=== PATIENT | male | born 1990 | race Caucasian/White ===

== ENCOUNTER 2018-07-08 22:39 | Emergency (ER) | payer OTHER, BC ==
[2018-07-08] MEDS ORDERED: SKIN ADHESIVE (DERMABOND) 1 EACH TP ONE (23:16)
[2018-07-08 23:31] VITALS: BP 137/79
--- NOTE | 2018-07-08 23:31 | EDPHY ---
H & P Stated Complaint: HIT FOREHEAD ON METAL HANDLE ON DOOR AT WORK Time Seen by Provider: 07/08/18 22:57 HPI/ROS: HPI: The patient presents with head injury which occurred about 20 min prior to arrival he believes. He was walking and opened a heavy iron door with a steel handle and hit his head against it. He sustained a forehead laceration. He has not had any other injuries. He did not lose consciousness, has full recall of the event. He does not have a headache, behavioral change, vision change, weakness of his arms or legs, vomiting. His last tetanus vaccine was within 10 years. REVIEW OF SYSTEMS 10 systems were reviewed and negative with the exception of the elements mentioned in the history of present illness. PMHx: History of mandibular fracture TRAUMA PHYSICAL General Appearance: Alert, no distress Head: 3 cm vertical forehead laceration at the midline which is non gaping, full range of motion of the frontalis Eyes: Pupils equal, round, reactive ENT, Mouth: no oral trauma Neck: Trachea midline Respiratory: Breathing comfortably Neurological: A&Ox3, GCS=15,normal motor function with 5/5 strength in all 4 extremities, normal sensory exam Source: Patient Exam Limitations: No limitations - Personal History Current Tetanus/Diphtheria Vaccine: Yes - Medical/Surgical History Hx Asthma: No Hx Chronic Respiratory Disease: No Hx Diabetes: No Hx Cardiac Disease: No Hx Renal Disease: No Hx Cirrhosis: No Hx Alcoholism: No Hx HIV/AIDS: No Hx Splenectomy or Spleen Trauma: No Other PMH: FACIAL SURG, FX JAW, COLITIS 11/23 - Social History Smoking Status: Current every day smoker Constitutional: Initial Vital Signs Temperature (C) 36.3 C 07/08/18 22:42 Heart Rate 70 07/08/18 22:42 Respiratory Rate 18 07/08/18 22:42 Blood Pressure 135/94 H 07/08/18 22:42 O2 Sat (%) 97 07/08/18 22:42 O2 Delivery Mode Room Air Allergies/Adverse Reactions: No Known Allergies Allergy (Unverified 07/08/18 22:41) Home Medications: Medication Instructions Recorded NK [No Known Home Meds] 07/08/18 Medical Decision Making Procedures: LACERATION REPAIR Procedure: Laceration repair. Verbal consent was obtained from the patient. The linear 3 cm laceration on the forehead did not require anesthesia. The wound was scrubbed, draped and explored to its base with a gloved finger. There were no deep structures involved. . The wound was repaired with a combination of Steri-Strips and Dermabond. The wound repair was simple. The procedure was performed by myself. Differential Diagnosis: 27-year-old healthy man presents with forehead laceration, hitting his head on a steel door while at work tonight. Injury occurred about 20 min prior to arrival in the emergency department. Grossly, patient has a normal neurologic examination. He has sustained a 3 cm non gaping laceration of his forehead. Plan to repair with Dermabond and Steri-Strips after irrigation. He does not have any symptoms of a concussion currently. I do not think he needs a CT scan of his head. I did give him concussion warning signs. Departure - Departure Disposition: Home, Routine, Self-Care Clinical Impression: Forehead laceration Qualifiers: Encounter type: initial encounter Qualified Code(s): S01.81XA - Laceration without foreign body of other part of head, initial encounter Head injury Qualifiers: Encounter type: initial encounter Qualified Code(s): S09.90XA - Unspecified injury of head, initial encounter Condition: Good Instructions: Skin Adhesive Care (ED), Facial Laceration (ED) Additional Instructions: Please keep the wound covered and dried for the next 48 hr. It is then okay to get it wet in the shower. Within 5 days the glue and Steri-Strips will begin to peel off. It is important that you use sunscreen on the wound for the next 6 months so that the wound heals well. If you develop a headache tomorrow, I recommend you take ibuprofen 400 mg every 6 hr. Referrals: Fabio Barron MD [Medical Doctor] - As per Instructions
== END 2018-07-08 23:38 | disposition home or self-care (01) ==
PROC: 0HQ1XZZ Repair Face Skin, External Approach (ICD-10-PCS; principal; 2018-07-08)
DX: S01.81XA Laceration without foreign body of other part of head, initial encounter (principal); W22.8XXA Striking against or struck by other objects, initial encounter; Y92.9 Unspecified place or not applicable; Y93.9 Activity, unspecified; Y99.0 Civilian activity done for income or pay